=== PATIENT | female | born 2000 | race Caucasian/White ===

== ENCOUNTER 2024-05-26 15:25 | Emergency (ER) | payer OTHER ==
[2024-05-26] MEDS ORDERED: Ketorolac Tromethamine 30 MG (1 mL) VIAL ONE (16:06)
[2024-05-26] MEDS ORDERED: Boostrix 0.5 ML (Tdap) VIAL (>/=7 yrs of age) ONE (16:07)
== END 2024-05-26 17:29 | disposition home or self-care (01) ==
LOC: CSHERS 15:25
DX: S90.852A Superficial foreign body, left foot, initial encounter (principal); F17.210 Nicotine dependence, cigarettes, uncomplicated; W44.C0XA Glass unspecified, entering into or through a natural orifice, initial encounter
CPT/HCPCS: 90715; 96372; 99283; J1885